=== PATIENT | female | born 1940 | race Caucasian/White ===

== ENCOUNTER 2019-01-24 01:36 | Emergency (ER) | payer MEDICARE ==
[~2019-01-24] VITALS: Ht 172.7 cm; Wt 72.6 kg
[2019-01-24 01:40] VITALS: BP 142/74
== END 2019-01-24 03:23 | disposition home or self-care (01) ==
LOC: ER 01:38
DX: R04.0 Epistaxis (principal); I10 Essential (primary) hypertension; I48.91 Unspecified atrial fibrillation; M54.9 Dorsalgia, unspecified; E03.9 Hypothyroidism, unspecified; Z98.890 Other specified postprocedural states; Z90.710 Acquired absence of both cervix and uterus; Z88.1 Allergy status to other antibiotic agents; Z60.2 Problems related to living alone